=== PATIENT | male | born 1970 | race African-American/Black ===

== ENCOUNTER 2020-08-16 06:37 | Emergency (ER) | payer MEDICAID ==
[~2020-08-16] VITALS: Ht 185.4 cm; Wt 86.2 kg
--- NOTE | 2020-08-16 06:51 | NUR ---
PT AAOX4. BIBSELF C/O HAVING BLOOD CLOTS IN HIS LUNGS. PT PLACED ON MONITOR AND PULSE OX. VITALS STABLE. AWAITING ER MD FOR EVAL AND ORDERS.
--- NOTE | 2020-08-16 07:20 | NUR ---
RECEIVED REPORT FROM OSVALDO RODRIGUEZ FOR [facility]IE. PT IS AAOX4, NOT IN RESPIRATORY DISTRESS, V/S STABLE, KEPT RESTED AND COMFORTABLE. WILL CONTINUE TO MONITOR.
[2020-08-16] MEDS ORDERED: PANTOPRAZOLE 40 MG VIAL ONE (07:25)
[2020-08-16] MEDS ORDERED: PANTOPRAZOLE 40 MG VIAL IV ONE (07:30)
[2020-08-16 07:35] LABS: BASOPHILS # (AUTO) 0.1 K/uL (0.0-0.2); EOSINOPHILS % (AUTO) 1.6 % (0.0-6.0); HEMATOCRIT 43 % (39-51); LYMPHOCYTES # (AUTO) 2.3 K/uL (0.8-4.8); LYMPHOCYTES % (AUTO) 31.9 % (20.0-44.0); MEAN CORPUSCULAR HGB CONC 33 g/dl (31.0-36.0); MEAN CORPUSCULAR VOLUME 97 fL (80-96); MONOCYTES # (AUTO) 0.5 K/uL (0.1-1.30); MONOCYTES % (AUTO) 6.3 % (2.0-12.0); NEUTROPHILS # (AUTO) 4.2 K/uL (1.8-8.9); NEUTROPHILS % (AUTO) 59.2 % (43.0-81.0); PLATELET COUNT (AUTO) 266 K/uL (150-450); RED BLOOD CELL COUNT(AUTO) 4.39 MIL/uL (4.5-6.0); WHITE BLOOD COUNT (AUTO) 7.2 K/uL (4.3-11.0)
[2020-08-16] MEDS ORDERED: IV NS 0.9% 250 ML IV ONE (07:51)
[2020-08-16] MEDS ORDERED: CT SWABBABLE VALVE TRANS SET 1 EA INFUS.SET MC ONE (07:51)
[2020-08-16] MEDS ORDERED: IOHEXOL-300 100 ML VIAL IV ONE (07:51)
[2020-08-16 07:59] LABS: ALBUMIN 3.5 g/dL (3.4-5.0); BILIRUBIN,DIRECT 0.1 mg/dL (0.0-0.2); BILIRUBIN,TOTAL 0.6 mg/dL (0.2-1.0); CALCIUM, SERUM 8.9 mg/dL (8.5-10.1); CREATININE 1.1 mg/dL (0.6-1.3); POTASSIUM 4.3 mmol/L (3.5-5.1); TOTAL PROTEIN, SERUM 6.9 g/dL (6.4-8.2)
--- NOTE | 2020-08-16 08:07 | NUR ---
PT IS WHEELED TO CT SCAN VIA [facility].
[2020-08-16 09:49] VITALS: BP 134/76
--- NOTE | 2020-08-16 09:49 | NUR ---
Patient discharged to home in stable condition. Written and verbal after care instructions given. Patient verbalizes understanding of instruction. IV removed. Catheter intact and site benign. Pressure and 4x4 applied to site. No bleeding noted.
== END 2020-08-16 09:50 | disposition home or self-care (01) ==
LOC: ER 06:40
DX: K92.2 Gastrointestinal hemorrhage, unspecified (principal); Z79.01 Long term (current) use of anticoagulants; Z86.711 Personal history of pulmonary embolism
CPT/HCPCS: 36415; 74177; 80048; 80076; 83690; 85025; 86850; 96374; 99285; C9113; J7050; Q9967